=== PATIENT | male | born 1995 | race Caucasian/White ===

== ENCOUNTER 2018-09-26 13:50 | Emergency (ER) | payer MEDICAID ==
[~2018-09-26] VITALS: Ht 165.1 cm; Wt 59.1 kg
[~2018-09-26 13:50] MED LIST: CYCL-1 PO
[2018-09-26] MEDS ORDERED: normal saline 1000ML IV soln IV ONE (14:05)
[2018-09-26 14:45] LABS: BASOPHILS % (AUTO) 0.5 % (0-1); EOSINOPHILS % (AUTO) 0.2 % (0-6); HEMATOCRIT 49.9 % (42.0-52.0); HEMOGLOBIN 16.9 g/dl (14.0-17.9); LYMPHOCYTES # (AUTO) 1.8 X10'3 (1.1-4.8); LYMPHOCYTES % (AUTO) 20.8 % (21-51); MEAN CORPUSCULAR HEMOGLOBIN 31.1 PG (27.0-31.0); MEAN CORPUSCULAR VOLUME 91.5 FL (78-98); MEAN PLATELET VOLUME 7.7 FL (7.4-10.4); MONOCYTES # (AUTO) 0.5 X10'3 (0-0.9); MONOCYTES % (AUTO) 5.3 % (2-12); NEUTROPHILS # (AUTO) 6.4 X10'3 (1.8-7.7); NEUTROPHILS % (AUTO) 73.2 % (42-75); PLATELET COUNT 347 X10'3 (140-440); RED BLOOD COUNT 5.45 X10'6 (4.70-6.10); RED CELL DISTRIBUTION WIDTH 12.6 % (11.5-14.5); WHITE BLOOD COUNT 8.8 X10'3 (4.5-11.0)
[2018-09-26 14:52] LABS: ALANINE AMINOTRANSFERASE 44 U/L (12-78); ALBUMIN 3.9 G/DL (3.4-5.0); ALBUMIN/GLOBULIN RATIO 1.1 (1.1-1.5); ALKALINE PHOSPHATASE 127 IU/L (46-116); ANION GAP 15 (8-16); ASPARTATE AMINO TRANSFERASE 19 U/L (10-37); BILIRUBIN,TOTAL 0.2 MG/DL (0.1-1.0); BLOOD UREA NITROGEN 9 MG/DL (7-18); BUN/CREATININE RATIO 10.2 (5.4-32.0); CHLORIDE 101 MMOL/L (99-107); CREATININE 0.88 MG/DL (0.60-1.10); GLUCOSE 111 MG/DL (70-104); POTASSIUM 4.1 MMOL/L (3.5-5.1); SODIUM 140 MMOL/L (135-145); TOTAL CARBON DIOXIDE 24.1 MMOL/L (24-32); TOTAL PROTEIN 7.4 G/DL (6.4-8.2); eGFR > 90 ML/MIN
[2018-09-26] MEDS ORDERED: METH4TAB3 PO (16:57)
[2018-09-26] MEDS ORDERED: ALBU6.7H INH (16:57)
[2018-09-26] MEDS ORDERED: AMOX-580 PO (16:57)
[2018-09-26] MEDS ORDERED: azithromycin/NS 500mg/250ml 250 ML IV ONE (17:20)
[2018-09-26] MEDS ORDERED: CefTRIAXone 2gm/D5W 50ml 50 ML IV ONE (17:20)
[2018-09-26] MEDS ORDERED: ketorolac trometh. 30mg/ml inj. IV ONE (17:20)
[2018-09-26] MEDS ORDERED: LORazepam 2 mg/ml vial IV ONE (17:20)
[2018-09-26] MEDS ORDERED: normal saline 1000ml 1,000 ML IV SCH (18:55)
[2018-09-26 21:36] LABS: URINE AMPHETAMINE SCREEN POSITIVE (Neg); URINE BARBITUATE SCREEN NEGATIVE (Neg); URINE BENZODIAZEPINES SCREEN NEGATIVE (Neg); URINE CANNABINOID SCREEN POSITIVE (Neg); URINE COCAINE SCREEN NEGATIVE (Neg); URINE METHADONE SCREEN NEGATIVE (Neg); URINE OPIATE SCREEN NEGATIVE (Neg); URINE PHENCYCLIDINE SCREEN NEGATIVE (Neg)
[2018-09-26 21:46] LABS: CREATINE KINASE 39 U/L (39-308)
[2018-09-26 22:11] VITALS: BP 111/52
== END 2018-09-26 22:20 | disposition home or self-care (01) ==
LOC: ER 13:50
DX: F15.10 Other stimulant abuse, uncomplicated (principal); B34.9 Viral infection, unspecified; G89.29 Other chronic pain; F17.200 Nicotine dependence, unspecified, uncomplicated; F12.90 Cannabis use, unspecified, uncomplicated
CPT/HCPCS: 36415; 71045; 80053; 80305; 82550; 82553; 83605; 84145; 85025; 87040; 87502; 87503; 96361; 96365; 96366; 96368; 96375; 99285; J0456; J0696; J1885; J2060

== ENCOUNTER 2019-04-19 17:39 | Emergency (ER) | payer MEDICAID ==
[~2019-04-19] VITALS: Ht 167.6 cm; Wt 57.0 kg
[2019-04-19 17:48] VITALS: BP 123/77
== END 2019-04-19 20:35 | disposition home or self-care (01) ==
LOC: ER 17:39
DX: F11.90 Opioid use, unspecified, uncomplicated (principal); R11.10 Vomiting, unspecified; G89.29 Other chronic pain; F12.90 Cannabis use, unspecified, uncomplicated
CPT/HCPCS: 99281

== ENCOUNTER 2022-01-31 12:51 | Emergency (ER) | payer MEDICAID ==
[~2022-01-31] VITALS: Ht 167.6 cm; Wt 57.4 kg
[2022-01-31 14:26] VITALS: BP 147/104
[2022-01-31] MEDS ORDERED: HYDR-3965 PO (14:54)
[2022-01-31] MEDS ORDERED: HYDROcodone/acetaminophen 10/325mg tab PO ONE (15:40)
== END 2022-01-31 16:34 | disposition home or self-care (01) ==
LOC: ER 12:51
DX: S52.124A Nondisplaced fracture of head of right radius, initial encounter for closed fracture (principal); S52.501A Unspecified fracture of the lower end of right radius, initial encounter for closed fracture; S50.311A Abrasion of right elbow, initial encounter; G89.29 Other chronic pain; F12.90 Cannabis use, unspecified, uncomplicated; Z79.899 Other long term (current) drug therapy; V28.0XXA Motorcycle driver injured in noncollision transport accident in nontraffic accident, initial encounter; Y93.89 Activity, other specified; Y92.89 Other specified places as the place of occurrence of the external cause; Y99.8 Other external cause status
CPT/HCPCS: 29125; 73080; 73110; 99284

== ENCOUNTER 2022-08-18 00:19 | Emergency (ER) | payer MEDICAID ==
[~2022-08-18] VITALS: Ht 167.6 cm; Wt 61.3 kg
[2022-08-18 00:26] VITALS: BP 147/98
== END 2022-08-18 01:21 ==
LOC: ER 00:19
DX: Z00.00 Encounter for general adult medical examination without abnormal findings (principal); G89.29 Other chronic pain; F17.200 Nicotine dependence, unspecified, uncomplicated; F12.90 Cannabis use, unspecified, uncomplicated
CPT/HCPCS: 99283